=== PATIENT | male | born 1965 | race Caucasian/White ===

== ENCOUNTER 2018-05-05 14:07 | Emergency (ER) | payer OTHER ==
[2018-05-05 14:22] LABS: ADD MAN DIFF? NO
[2018-05-05 14:24] LABS: ABNORMAL IP MESSAGE 1; BASOPHILS % 0.6 % (0.0-2.0); HEMATOCRIT 38.5 % (42.0-52.0); LYMPHOCYTES # 1.4 10^3/ul (0.8-2.9); LYMPHOCYTES % 44.8 % (15.0-51.0); MEAN CORPUSCULAR HGB CONC 33.8 g/dl (32.0-37.0); MEAN CORPUSCULAR VOLUME 103.8 fl (82.0-101.0); MEAN PLATELET VOLUME 9.7 fl (7.4-10.4); MONOCYTE # 0.2 10^3/ul (0.3-0.9); MONOCYTES % 7.7 % (0.0-11.0); NEUTROPHIL # 1.4 10^3/ul (1.6-7.5); NEUTROPHILS % 45.9 % (39.0-77.0); POSITIVE DIFF @See below; RED BLOOD COUNT 3.71 10^6/ul (4.70-6.10); RED CELL DISTRIBUTION WIDTH 19.2 % (11.5-14.5)
[2018-05-05 14:24] LABS: WHITE BLOOD COUNT 3.1 10^3/ul (4.8-10.8)
[2018-05-05] MEDS: SOD CHLORIDE 0.9% 1,000 ML IV (14:31)
[2018-05-05 14:36] LABS: PATH REVIEW? YES; PLATELET COUNT 27 10^3/UL (140-415)
[2018-05-05 14:40] LABS: ALANINE AMINOTRANSFERASE 85 IU/L (13-69); ALBUMIN/GLOBULIN RATIO 1.08; ALKALINE PHOSPHATASE 98 IU/L (42-121); ANION GAP 25 (8-16); BILIRUBIN,INDIRECT 0.8 mg/dl (0-1.1); BILIRUBIN,TOTAL 0.8 mg/dl (0.2-1.3); BLOOD UREA NITROGEN 9 mg/dl (7-20); CALCIUM 8.6 mg/dl (8.4-10.2); CARBON DIOXIDE 17 mmol/L (21-31); CHLORIDE 98 mmol/L (97-110); CREATININE 0.87 mg/dl (0.61-1.24); GLUCOSE 150 mg/dl (70-220); LIPASE 449 U/L (23-300); POTASSIUM 3.5 mmol/L (3.5-5.1); SODIUM 136 mmol/L (135-144); TOTAL PROTEIN 7.7 g/dl (6.1-8.1)
[2018-05-05 14:49] LABS: ASPARTATE AMINO TRANSFERASE 565 IU/L (15-46)
[2018-05-05] MEDS: LEVETIRACETAM 1000 MG (PMX) 100 ML IVPB (15:03)
[2018-05-05 15:28] LABS: PROTIME 14.4 Sec (11.9-14.9); PT RATIO 1.1
[2018-05-05 15:29] LABS: PARTIAL THROMBOPLASTIN TIME 38.7 Sec (25.0-35.0)
[2018-05-05 15:34] LABS: AMPHETAMINE/METHAMPHETAMINE Negative (NEGATIVE); BARBITURATES Negative (NEGATIVE); BENZODIAZEPINES Negative (NEGATIVE); CANNABINOIDS Negative (NEGATIVE); COCAINE Negative (NEGATIVE); OPIATES Negative (NEGATIVE)
[2018-05-05 15:50] LABS: ETHANOL < 10.0 mg/dl
[2018-05-05] MEDS: MAGNESIUM SULFATE 2 GM/50 ML 50 ML IVPB (16:41)
[2018-05-05] MEDS: LABETALOL HCL 20MG INJ IV (16:59)
[2018-05-05] MEDS ORDERED: ACETAMINOPHEN 325 MG TAB (17:01)
[2018-05-05 17:07] LABS: URINE BLOOD (Dip) POC 1+ (NEGATIVE); URINE GLUCOSE (Dip) POC Negative (NEGATIVE); URINE KETONES (Dip) POC Trace (NEGATIVE); URINE LEUKOCYTE EST (Dip) POC Negative (NEGATIVE); URINE NITRITE (Dip) POC Negative (NEGATIVE); URINE TOTAL PROTEIN POC 2+ (NEGATIVE)
[2018-05-05 17:07] LABS: URINE PH (Dip) POC 5.5 (5.0-8.5)
[2018-05-05] MEDS: SOD CHLORIDE 0.9% 2,540 ML IV (17:54)
[2018-05-05] MEDS: PIPER-TAZO 3.375 GM IV (PMX) 100 ML IVPB (17:54)
[2018-05-05] MEDS: VANCOMYCIN 1 GM (PMX) 250 ML IVPB (17:59)
[2018-05-05] MEDS: SODIUM CHLORIDE 0.9% 1L BAG IV* (17:59)
[2018-05-05 18:28] LABS: INR 1.14; PROTIME 14.8 Sec (11.9-14.9); PT RATIO 1.2
[2018-05-05 18:29] LABS: PARTIAL THROMBOPLASTIN TIME 38.4 Sec (25.0-35.0)
[2018-05-05 20:03] LABS: ADD UMIC YES; UR ASCORBIC ACID NEGATIVE (NEGATIVE); UR BILIRUBIN (Dip) NEGATIVE (NEGATIVE); UR BLOOD (Dip) NEGATIVE (NEGATIVE); UR CLARITY CLEAR (CLEAR); UR COLOR YELLOW (YELLOW); UR GLUCOSE (Dip) NEGATIVE (NEGATIVE); UR KETONES (Dip) TRACE mg/dL (NEGATIVE); UR LEUKOCYTE ESTERASE (Dip) NEGATIVE Leu/ul (NEGATIVE); UR MUCUS FEW /HPF (NONE SEEN); UR NITRITE (Dip) NEGATIVE (NEGATIVE); UR RBC 3 /HPF (0-5); UR SPECIFIC GRAVITY (Dip) 1.018 (1.003-1.030); UR TOTAL PROTEIN (Dip) 1+ mg/dl (NEGATIVE); UR UROBILINOGEN (Dip) NEGATIVE (NEGATIVE); UR WBC 3 /HPF (0-5)
[2018-05-05 20:08] LABS: LACTIC ACID 2.6 mmol/L (0.5-2.0)
== END 2018-05-05 20:09 | disposition short-term general hospital (02) ==
LOC: E/R 14:07
DX: R56.9 Unspecified convulsions (principal); D61.818 Other pancytopenia; E83.42 Hypomagnesemia; R74.0 Nonspecific elevation of levels of transaminase and lactic acid dehydrogenase [LDH]; J44.9 Chronic obstructive pulmonary disease, unspecified; R10.9 Unspecified abdominal pain; Z98.61 Coronary angioplasty status
CPT/HCPCS: 36415; 70450; 71045; 80053; 80307; 81001; 81003; 83605; 83690; 83735; 84484; 85025; 85610; 85730; 87040; 87086; 93005; 96374; 96375; 99291-25